=== PATIENT | female | born 1950 | race Caucasian/White ===

== ENCOUNTER 2020-06-03 12:51 | Emergency (ER) | payer MEDICARE, OTHER ==
[2020-06-03] MEDS ORDERED: Sodium Chloride 0.9% 10 ML Syringe FLUSH PRN (13:06)
--- NOTE | 2020-06-03 14:08 | EDM.PDOC ---
ED HPI GENERAL MEDICAL PROBLEM - General Chief Complaint: General Stated Complaint: [facility] Time Seen by Provider: 06/03/20 12:56 Source of Information: Reports: Patient, EMS History Limitations: Reports: No Limitations - History of Present Illness INITIAL COMMENTS - FREE TEXT/NARRATIVE: The patient presents by [facility] for a fall. She said this morning she fell while going to the bathroom. She tripped on a carpet. She may have hit her head on the wall on the way down. This happened at 4am. Her son called 911 to help get her up and then to take her to the hospital. She says she is a fall risk. She uses a walker at home. She is obese and has diabetic neuropathy. She has right shoulder and right low back pain. She has no fever, chills, cough, chest pain, shortness of breath, abdominal pain, nausea or vomiting. She did mention she has some vaginal discharge but on further questioning it sounds as if she has urinary incontinence. She has no numbness or weakness. She has a history of hypercholesterolemia, hypertension, asthma, PE for which she is on xarelto. She also has type II diabetes and diabetic neuropathy. Onset: Sudden Duration: Hour(s): Location: Reports: Head, Back, Upper Extremity, Right (shoulder) Quality: Reports: Sharp Severity: Moderate Improves with: Reports: Immobilization Worsens with: Reports: Movement Context: Reports: Trauma (fell) Associated Symptoms: Reports: Headaches. Denies: Confusion, Chest Pain, Cough, Diaphoresis, Fever/Chills, Nausea/Vomiting, Shortness of Breath Right Shoulder Pain Score (Numeric/FACES): 6 - Related Data Allergies Allergy/AdvReac Type Severity Reaction Status Date / Time metformin Allergy Itching Verified 06/03/20 13:05 Home Meds: Home Meds Albuterol Sulfate [Albuterol Sulfate Hfa] 2 puff IH Q6H PRN 06/03/20 [History] Aspirin [Halfprin] 81 mg PO DAILY 06/03/20 [History] Beclomethasone Dipropionate [Qvar Redihaler] 1 puff IH BID 06/03/20 [History] Escitalopram [Lexapro] 10 mg PO DAILY 06/03/20 [History] Gabapentin [Neurontin] 100 mg PO TID 06/03/20 [History] Metoprolol Succinate 25 mg PO DAILY 06/03/20 [History] Rivaroxaban [Xarelto] 20 mg PO DAILY 06/03/20 [History] Rosuvastatin Calcium 20 mg PO BEDTIME 06/03/20 [History] traMADol [Ultram] 50 mg PO BID 06/03/20 [History] Past Medical History Cardiovascular History: Reports: High Cholesterol, Hypertension Respiratory History: Reports: Asthma, PE [employer] History: Reports: Neurological History: Reports: Neuropathy, Diabetic Endocrine/Metabolic History: Reports: Diabetes, Type II - Past Surgical History Musculoskeletal Surgical History: Reports: Knee Replacement, Other (See Below) Other Musculoskeletal Surgeries/Procedures:: bilat Social & Family History - Tobacco Use Tobacco Use Status *Q: Former Tobacco User Used Tobacco, but Quit: Yes Month/Year Tobacco Last Used: 1981 - Caffeine Use Caffeine Use: Reports: Soda - Recreational Drug Use Recreational Drug Use: No ED ROS GENERAL - Review of Systems Review Of Systems: See Below Constitutional: Reports: No Symptoms HEENT: Reports: No Symptoms Respiratory: Reports: No Symptoms Cardiovascular: Reports: No Symptoms Endocrine: Reports: No Symptoms GI/Abdominal: Reports: No Symptoms : Reports: No Symptoms Musculoskeletal: Reports: Shoulder Pain (right), Back Pain Neurological: Reports: Headache ED EXAM, GENERAL - Physical Exam Exam: See Below Exam Limited By: No Limitations General Appearance: Alert, No Apparent Distress Ears: Normal External Exam Nose: Normal Inspection Head: Atraumatic, Normocephalic Neck: Normal Inspection, Supple, Non-Tender Respiratory/Chest: No Respiratory Distress, Lungs Clear, Normal Breath Sounds Cardiovascular: Regular Rate, Rhythm, No Edema, No Murmur GI/Abdominal: Soft, Non-Tender, No Organomegaly, No Mass Back Exam: Other (Pain upon palpation to the low back) Extremities: Other (Pain upon palpation to the right shoulder. Good sensation and pulses distally.) Neurological: Alert, Oriented, No Motor/Sensory Deficits #1 Interpretation EKG Date: 06/03/20 Time: 13:22 Rhythm: NSR Rate (Beats/Min): 83 [place]: LAD-Left [place]uchy Deviation P-Wave: Present QRS: Normal ST-T: Normal QT: Normal Course - Vital Signs Last Recorded V/S: Last Vital Signs Temp 98.6 F 06/03/20 12:59 Pulse 87 06/03/20 12:59 Resp 20 06/03/20 12:59 BP 149/60 H 06/03/20 12:59 Pulse Ox 96 06/03/20 12:59 - Orders/Labs/Meds Orders: Active Orders 24 hr Category Date Time Status EKG Documentation Completion [RC] STAT Care 06/03/20 13:11 Active Peripheral IV Care [RC] . DIRECTED Care 06/03/20 13:12 Active Sodium Chloride 0.9% [Saline Flush] Med 06/03/20 13:06 Active 10 ml FLUSH ASDIRECTED PRN Peripheral IV Insertion Adult [OM.PC] Stat Oth 06/03/20 13:10 Ordered Medication Orders Sodium Chloride (Saline Flush) 10 ml FLUSH ASDIRECTED PRN PRN Reason: Keep Vein Open Last Admin: 06/03/20 14:26 Dose: 10 ml Documented by: KEYA Labs: Laboratory Tests 06/03/20 06/03/20 06/03/20 Range/Units 13:33 13:33 13:33 WBC 5.38 (3.98-10.04) K/mm3 RBC 4.23 (3.98-5.22) M/mm3 Hgb 10.8 L (11.2-15.7) gm/dl Hct 36.1 (34.1-44.9) % MCV 85.3 (79.4-94.8) fl MCH 25.5 L (25.6-32.2) pg MCHC 29.9 L (32.2-35.5) g/dl RDW Std Deviation 46.8 H (36.4-46.3) fL Plt Count 241 (182-369) K/mm3 MPV 9.9 (9.4-12.3) fl Neut % (Auto) 64.8 (34.0-71.1) % Lymph % (Auto) 27.0 (19.3-51.7) % [place] % (Auto) 5.0 (4.7-12.5) % Eos % (Auto) 2.6 (0.7-5.8) Baso % (Auto) 0.4 (0.1-1.2) % Neut # (Auto) 3.49 (1.56-6.13) K/mm3 Lymph # (Auto) 1.45 (1.18-3.74) K/mm3 [place] # (Auto) 0.27 (0.24-0.36) K/mm3 Eos # (Auto) 0.14 (0.04-0.36) K/mm3 Baso # (Auto) 0.02 (0.01-0.08) K/mm3 Manual Slide Review Abnormal smear Sodium 145 (136-145) mEq/L Potassium 3.6 (3.5-5.1) mEq/L Chloride 105 (98-107) mEq/L Carbon Dioxide 29 (21-32) mEq/L Anion Gap 14.6 (5-15) BUN 14 (7-18) mg/dL Creatinine 1.1 H (0.55-1.02) mg/dL Est Cr Clr Drug Dosing 46.63 mL/min Estimated GFR (MDRD) 49 (>60) mL/min BUN/Creatinine Ratio 12.7 L (14-18) Glucose 221 H (83-115) mg/dL Calcium 9.2 (8.5-10.1) mg/dL Total Bilirubin 0.4 (0.2-1.0) mg/dL AST 18 (15-37) U/L ALT 29 (14-59) U/L Alkaline Phosphatase 162 H (46-116) U/L Troponin I < 0.017 (0.00-0.056) ng/mL C-Reactive Protein 1.2 H* (<1.0) mg/dL NT-Pro-B Natriuret Pep 188 H (0-125) pg/mL Total Protein 7.4 (6.4-8.2) g/dl Albumin 3.0 L (3.4-5.0) g/dl Globulin 4.4 gm/dL Albumin/Globulin Ratio 0.7 L (1-2) Urine Color (Yellow) Urine Appearance (Clear) Urine pH (5.0-8.0) Ur Specific [place] (1.005-1.030) Urine Protein (Negative) Urine Glucose (UA) (Negative) Urine Ketones (Negative) Urine Occult Blood (Negative) Urine Nitrite (Negative) Urine Bilirubin (Negative) Urine Urobilinogen (0.2-1.0) Ur Leukocyte Esterase (Negative) Urine RBC (0-5) /hpf Urine WBC (0-5) /hpf Ur Squamous Epith Cells (0-5) /hpf Urine Bacteria (FEW) /hpf Urine Mucus (FEW) /hpf 06/03/20 Range/Units 15:55 WBC (3.98-10.04) K/mm3 RBC (3.98-5.22) M/mm3 Hgb (11.2-15.7) gm/dl Hct (34.1-44.9) % MCV (79.4-94.8) fl MCH (25.6-32.2) pg MCHC (32.2-35.5) g/dl RDW Std Deviation (36.4-46.3) fL Plt Count (182-369) K/mm3 MPV (9.4-12.3) fl Neut % (Auto) (34.0-71.1) % Lymph % (Auto) (19.3-51.7) % Gulf % (Auto) (4.7-12.5) % Eos % (Auto) (0.7-5.8) Baso % (Auto) (0.1-1.2) % Neut # (Auto) (1.56-6.13) K/mm3 Lymph # (Auto) (1.18-3.74) K/mm3 [place] # (Auto) (0.24-0.36) K/mm3 Eos # (Auto) (0.04-0.36) K/mm3 Baso # (Auto) (0.01-0.08) K/mm3 Manual Slide Review Sodium (136-145) mEq/L Potassium (3.5-5.1) mEq/L Chloride (98-107) mEq/L Carbon Dioxide (21-32) mEq/L Anion Gap (5-15) BUN (7-18) mg/dL Creatinine (0.55-1.02) mg/dL Est Cr Clr Drug Dosing mL/min Estimated GFR (MDRD) (>60) mL/min BUN/Creatinine Ratio (14-18) Glucose (83-115) mg/dL Calcium (8.5-10.1) mg/dL Total Bilirubin (0.2-1.0) mg/dL AST (15-37) U/L ALT (14-59) U/L Alkaline Phosphatase (46-116) U/L Troponin I (0.00-0.056) ng/mL C-Reactive Protein (<1.0) mg/dL NT-Pro-B Natriuret Pep (0-125) pg/mL Total Protein (6.4-8.2) g/dl Albumin (3.4-5.0) g/dl Globulin gm/dL Albumin/Globulin Ratio (1-2) Urine Color Yellow (Yellow) Urine Appearance Clear (Clear) Urine pH 7.0 (5.0-8.0) Ur Specific [place] 1.020 (1.005-1.030) Urine Protein Negative (Negative) Urine Glucose (UA) Negative (Negative) Urine Ketones Negative (Negative) Urine Occult Blood Negative (Negative) Urine Nitrite Negative (Negative) Urine Bilirubin Negative (Negative) Urine Urobilinogen 0.2 (0.2-1.0) Ur Leukocyte Esterase 1+ H (Negative) Urine RBC 0-5 (0-5) /hpf Urine WBC 0-5 (0-5) /hpf Ur Squamous Epith Cells 0-5 (0-5) /hpf Urine Bacteria Few (FEW) /hpf Urine Mucus Not seen (FEW) /hpf Meds: Medications Generic Name Dose Route Start Last Admin Trade Name Freq PRN Reason Stop Dose Admin Sodium Chloride 10 ml 06/03/20 13:06 06/03/20 14:26 Saline Flush FLUSH 10 ml ASDIRECTED PRN Administration Keep Vein Open - Re-Assessments/Exams Free Text/Narrative Re-Assessment/Exam: 06/03/20 14:11 I ordered an IV saline lock, EKG, CT of his head, labs and UA. Her EKG shows a NSR with no acute changes. 06/03/20 15:[address] of her head shows senescent change as described above. Nothing acute is appreciated. No evidence of intracranial hemorrhage. Her CXR shows shows findings believed to be incidental. Nothing acute is appreciated. X-ray of her shoulder shows findings as noted above and nothing acute is appreciated. The x-ray of her lumbar spine shows compression deformity of L1 which is most likely old. MRI would be needed to confirm age if patient has symptoms. Her CBC looks good. Her creatinine is slightly elevated at 1.1. Her glucose is elevated at 221. Her troponin is negative. Her CRP is elevated at 1.2. My nurse got her up and she did good. I am waiting for the UA. 06/03/20 16:28 The UA shows a UTI. 06/03/20 17:09 Her son called and he had concerns that he cannot care for her at home. He asked if she could be admitted here for a couple of days. I do not have a reason to admit. The L1 fracture is chronic and she has no pain now. She got up and could walk with a walker here. I did give the number of our social services designee to call on Friday to get some help and guidance. Departure - Departure Time of Disposition: 17:15 Disposition: Home, Self-Care 01 Condition: Good Clinical Impression: Generalized weakness Fall Qualifiers: Encounter type: initial encounter Qualified Code(s): W19.XXXA - Unspecified fall, initial encounter Compression fracture of L1 lumbar vertebra Qualifiers: Encounter type: initial encounter Qualified Code(s): S32.010A - Wedge compression fracture of first lumbar vertebra, initial encounter for closed fracture - Discharge Information Referrals: PCP,Not In Area [Primary Care Provider] - Fior Li, EXECUTIVE COORDINATOR [Nurse Practitioner] - 1 Week Forms: ED Department Discharge, ED Return to Work/School Form Additional Instructions: Follow up with Fior Li in our clinic or another provider in our clinic. Take your medication as prescribed. Please return if you are worse. Sepsis Event Note (ED) - Evaluation Sepsis Screening Result: No Definite Risk - Focused Exam Vital Signs: Vital Signs Temp Pulse Resp BP Pulse Ox 06/03/20 12:59 98.6 F 87 20 149/60 H 96
--- NOTE | 2020-06-03 14:13 | CT ---
Head CT Technique: Multiple axial sections through the brain were obtained. Intravenous contrast was not utilized. Reconstructed coronal and sagittal images were obtained. Findings: Ventricles along with basal cisterns and sulci over the convexities are mildly prominent. Atherosclerotic change is seen within the carotid siphon. Diminished density is noted within the periventricular white matter which is compatible with small vessel ischemic demyelination change. No evidence of intracranial hemorrhage. No midline shift or mass-effect is seen. Visualized mastoid sinuses and paranasal sinuses show nothing acute. No acute calvarial finding is seen. Impression: 1. Senescent change as described above. 2. Nothing acute is appreciated. No evidence of intracranial hemorrhage. Diagnostic code #2
--- NOTE | 2020-06-03 14:51 | CR ---
Chest: Frontal view of the chest was obtained. Comparison: No previous chest CT is available. Heart size is normal. Tortuous thoracic aorta is seen. Lungs show focal pleural density within the lateral right chest correlating to previous rib fractures. Right shoulder prosthesis is seen. Impression: 1. Findings believed to be incidental. 2. Nothing acute is appreciated. Diagnostic code #2
--- NOTE | 2020-06-03 14:52 | CR ---
Lumbar spine: AP and lateral views of the lumbar spine were obtained. Cone-down lateral views were also obtained at the lumbosacral junction. Comparison: No prior lumbar spine imaging is available. Trans-pedicle screws are seen within L4, L5 and S1. There is a moderately severe compression deformity of L1 which is most likely old. Slight disc space narrowing is seen posteriorly at L2-3 and L3-4 as well as at T12-L1 and L1-2. Minimal scoliosis is noted. No definite acute abnormality is appreciated. Impression: 1. Compression deformity of L1 which is most likely old. MRI would be needed to confirm age if patient has symptoms to this area. 2. Mild degenerative change and previous lumbar spine surgery. Diagnostic code #3
--- NOTE | 2020-06-03 14:52 | CR ---
Right shoulder: 3 views of the right shoulder were obtained. Comparison: No prior shoulder study is available. Right shoulder prosthesis is noted. Previous rib fractures and pleural thickening are partially seen within the chest. Vascular calcification is noted within the right carotid artery. No definite acute fracture, dislocation or other bony abnormality is appreciated. Impression: 1. Findings as noted above. 2. Nothing acute is appreciated. Diagnostic code #2
== END 2020-06-03 17:25 | disposition home or self-care (01) ==
LOC: JD.ED 12:51
DX: S32.019A Unspecified fracture of first lumbar vertebra, initial encounter for closed fracture (principal); R53.1 Weakness; E78.00 Pure hypercholesterolemia, unspecified; I10 Essential (primary) hypertension; J45.909 Unspecified asthma, uncomplicated; E11.40 Type 2 diabetes mellitus with diabetic neuropathy, unspecified; Z79.82 Long term (current) use of aspirin; Z79.01 Long term (current) use of anticoagulants; Z79.899 Other long term (current) drug therapy; Z86.711 Personal history of pulmonary embolism; Z88.8 Allergy status to other drugs, medicaments and biological substances; Z87.891 Personal history of nicotine dependence; W01.0XXA Fall on same level from slipping, tripping and stumbling without subsequent striking against object, initial encounter
CPT/HCPCS: 36415; 70450; 70450-26; 71045; 71045-26; 72100; 72100-26; 73030-26-RT; 73030-RT; 80053; 81001; 83880; 84484; 85025; 86140; 93005; 93010; 99284; 99285-25

== ENCOUNTER 2020-06-10 10:36 | Emergency (ER) | payer MEDICARE, OTHER ==
--- NOTE | 2020-06-10 11:50 | EDM.PDOC ---
ED HPI GENERAL MEDICAL PROBLEM - General Chief Complaint: Abdominal Pain Stated Complaint: [facility] Time Seen by Provider: 06/10/20 11:36 Source of Information: Reports: Patient, Old Records, RN Notes Reviewed History Limitations: Reports: No Limitations - History of Present Illness INITIAL COMMENTS - FREE TEXT/NARRATIVE: Patient is a 70-year-old female who presents to the ED via [facility] for the evaluation of her abdominal pain and vaginal complaint. Patient notes for the past 4 5 days she has been having issues with generalized abdominal pain that seems to come and go. She notes it seems to worsen with spicy foods. It is better when she does not eat spicy foods. She has had some diarrhea associated with this, last episode was yesterday. Patient notes she is also been incontinent for the last 6 or 8 months, and has been wearing diapers for this. For the past 3 days however she is having some burning sensation in her vaginal area and thinks that she might have a rash causing issues. She has not had any weakness, fatigue, and can get around her house normally with her walker. Patient does live with her [id number] and son, and notes that they do help her somewhat with her health. She notes today when the triage nurse did a catheterized urine, when she wiped with the cold rag or soap that the area burned. She has not been using any sort of barrier creams for this. She has not had any fevers or chills, cough or shortness of breath, or any other sick- like symptoms. Abdominal Pain Score (Numeric/FACES): 6 Vaginal Pain Score (Numeric/FACES): 8 - Related Data Allergies Allergy/AdvReac Type Severity Reaction Status Date / Time metformin Allergy Itching Verified 06/10/20 11:02 Home Meds: Home Meds Albuterol Sulfate [Albuterol Sulfate Hfa] 2 puff IH Q6H PRN 06/03/20 [History] Aspirin [Halfprin] 81 mg PO DAILY 06/03/20 [History] Beclomethasone Dipropionate [Qvar Redihaler] 1 puff IH BID 06/03/20 [History] Escitalopram [Lexapro] 10 mg PO DAILY 06/03/20 [History] Gabapentin [Neurontin] 100 mg PO TID 06/03/20 [History] Metoprolol Succinate 25 mg PO DAILY 06/03/20 [History] Rivaroxaban [Xarelto] 20 mg PO DAILY 06/03/20 [History] Rosuvastatin Calcium 20 mg PO BEDTIME 06/03/20 [History] traMADol [Ultram] 50 mg PO BID 06/03/20 [History] Menthol/Zinc Oxide [Calmoseptine] 113 gm TOP BID #1 tube 06/10/20 [Rx] Past Medical History Cardiovascular History: Reports: High Cholesterol, Hypertension Respiratory History: Reports: Asthma, [employer] History: Reports: Neurological History: Reports: Neuropathy, Diabetic Endocrine/Metabolic History: Reports: Diabetes, Type II - Past Surgical History Musculoskeletal Surgical History: Reports: Knee Replacement, Other (See Below) Other Musculoskeletal Surgeries/Procedures:: bilat Social & Family History - Caffeine Use Caffeine Use: Reports: Soda ED ROS GENERAL - Review of Systems Review Of Systems: Comprehensive ROS is negative, except as noted in HPI. ED EXAM, GI/ABD - Physical Exam Exam: See Below Exam Limited By: No Limitations General Appearance: Alert, WD/WN, No Apparent Distress Respiratory/Chest: No Respiratory Distress, Lungs Clear, Normal Breath Sounds, No Accessory Muscle Use, Chest Non-Tender Cardiovascular: Normal Peripheral Pulses, Regular Rate, Rhythm, No Edema GI/Abdominal Exam: Normal Bowel Sounds, Soft, Non-Tender, No Distention, No Mass (Female) Exam: Normal External Exam, Vaginal Discharge (clear discharge coming from urethra or vagina. Pt is obese, and is hard to assess. No discernable rash on inner or outer labia.) Neurological: Alert, Oriented, Normal Cognition, No Motor/Sensory Deficits Psychiatric: Normal Affect, Normal Mood Skin Exam: Warm, Dry, Intact, Normal Color, No Rash Course - Vital Signs Last Recorded V/S: Last Vital Signs Temp 98.6 F 06/10/20 10:57 Pulse 86 06/10/20 10:57 Resp 18 06/10/20 10:57 BP 127/58 L 06/10/20 10:57 Pulse Ox 95 06/10/20 10:57 - Orders/Labs/Meds Orders: Active Orders 24 hr Category Date Time Status Menthol/Zinc Oxide [Calmoseptine] Med 06/10/20 13:06 Active 1 gm TOP BID Medication Orders Calamine/Phenol (Calmoseptine) 1 gm TOP BID THOMAS Labs: Laboratory Tests 06/10/20 06/10/20 06/10/20 Range/Units 11:03 11:45 11:45 WBC 5.59 (3.98-10.04) K/mm3 RBC 4.11 (3.98-5.22) M/mm3 Hgb 10.5 L (11.2-15.7) gm/dl Hct 35.2 (34.1-44.9) % MCV 85.6 (79.4-94.8) fl MCH 25.5 L (25.6-32.2) pg MCHC 29.8 L (32.2-35.5) g/dl RDW Std Deviation 46.6 H (36.4-46.3) fL Plt Count 186 (182-369) K/mm3 MPV 9.9 (9.4-12.3) fl Neut % (Auto) 65.7 (34.0-71.1) % Lymph % (Auto) 24.2 (19.3-51.7) % [place] % (Auto) 8.1 (4.7-12.5) % Eos % (Auto) 1.4 (0.7-5.8) Baso % (Auto) 0.4 (0.1-1.2) % Neut # (Auto) 3.68 (1.56-6.13) K/mm3 Lymph # (Auto) 1.35 (1.18-3.74) K/mm3 [place] # (Auto) 0.45 H (0.24-0.36) K/mm3 Eos # (Auto) 0.08 (0.04-0.36) K/mm3 Baso # (Auto) 0.02 (0.01-0.08) K/mm3 Manual Slide Review Abnormal smear Sodium 141 (136-145) mEq/L Potassium 3.6 (3.5-5.1) mEq/L Chloride 105 (98-107) mEq/L Carbon Dioxide 30 (21-32) mEq/L Anion Gap 9.6 (5-15) BUN 10 (7-18) mg/dL Creatinine 1.1 H (0.55-1.02) mg/dL Est Cr Clr Drug Dosing 46.63 mL/min Estimated GFR (MDRD) 49 (>60) mL/min BUN/Creatinine Ratio 9.1 L (14-18) Glucose 217 H (83-115) mg/dL Calcium 8.9 (8.5-10.1) mg/dL Total Bilirubin 0.4 (0.2-1.0) mg/dL AST 11 L (15-37) U/L ALT 18 (14-59) U/L Alkaline Phosphatase 131 H (46-116) U/L Total Protein 7.2 (6.4-8.2) g/dl Albumin 3.0 L (3.4-5.0) g/dl Globulin 4.2 gm/dL Albumin/Globulin Ratio 0.7 L (1-2) Urine Color Yellow (Yellow) Urine Appearance Clear (Clear) Urine pH 6.5 (5.0-8.0) Ur Specific Diamond 1.020 (1.005-1.030) Urine Protein 1+ H (Negative) Urine Glucose (UA) Trace H (Negative) Urine Ketones Negative (Negative) Urine Occult Blood Negative (Negative) Urine Nitrite Negative (Negative) Urine Bilirubin Negative (Negative) Urine Urobilinogen 0.2 (0.2-1.0) Ur Leukocyte Esterase Negative (Negative) Urine RBC 0-5 (0-5) /hpf Urine WBC 0-5 (0-5) /hpf Ur Epithelial Cells 0-5 (0-5) /hpf Urine Bacteria Rare (FEW) /hpf Urine Mucus Moderate H (FEW) /hpf Meds: Medications Generic Name Dose Route Start Last Admin Trade Name Freq PRN Reason Stop Dose Admin Calamine/Phenol 1 gm 06/10/20 13:06 Calmoseptine TOP BID THOMAS - Re-Assessments/Exams Free Text/Narrative Re-Assessment/Exam: 06/10/20 11:49 Patient presents to the ED for her abdomen pain and vaginal burning. There is no discernible rash on her vagina, and the catheterized urine does appear to be without infection for the most part at this time however microscopy is still pending. Labs have been obtained by triage nurse due to extended wait times in the ER. Patient notes she is a diabetic, we will await the metabolic panel, and decide on imaging after this. I am somewhat concerned this might be a vulnerable adult type situation. RN that was here when she visited us 1 week ago stated that the family was very hesitant to take her back, and a different RN today noted some erythema/irritation to her buttocks that is suggestive of not being changed often enough; or she is not receiving the help she needs to adequately take care of herself. 06/10/20 12:30 Patient's labs have resulted, glucose is mildly elevated 217; otherwise labs are unremarkable. Patient's pain is not severe enough to warrant CT at this time however we will do abdomen x-ray for further evaluation. 06/10/20 13:04 The patient's abdomen x-ray has been taken, there does appear to be lots of gas within the abdomen, there is some stool in the right side of her colon however I meant to order 2 view abdomen with a lateral decubitus, to check for air-fluid levels. Have ordered lateral decubitus view at this time. Patient will likely be sent home with general conservative recommendations and family will need to try to get her in assisted living or senior care if they do not believe they can provide the social support she needs with her ADLs. 06/10/20 13:21 The patient's flat abdomen films demonstrate scattered small bowel gas and colonic gas however no obstructive pattern is noted at this time. We will still go forward with the lateral decubitus for complete series. 06/10/20 13:58 Lateral decubitus films do demonstrate quite a bit of gas within the colon, but again no air-fluid levels are be suggestive of obstruction by myself and Dr. Moore. Official radiology read is pending. We will discharge patient home with general recommendations. 06/10/20 14:57 Official radiology read of the lateral decubitus view demonstrates no free air within the abdomen, and no definite signs of obstruction were appreciated. Departure - Departure Time of Disposition: 13:22 Disposition: Home, Self-Care 01 Condition: Good Clinical Impression: Perineal irritation in female, Urinary incontinence in female - Discharge Information *PRESCRIPTION DRUG MONITORING PROGRAM REVIEWED*: No *COPY OF PRESCRIPTION DRUG MONITORING REPORT IN PATIENT EMIL: No Prescriptions: Menthol/Zinc Oxide [Calmoseptine] 113 gm TOP BID #1 tube Instructions: Urinary Incontinence Referrals: PCP,Not In Area [Primary Care Provider] - Forms: ED Department Discharge Additional Instructions: You were seen in the ER today for your abdomen pain, and vaginal burning. Labs done at today's visit are unremarkable, your x-rays taken at today's visit show quite a bit of gas throughout the colon but no signs of obstruction or constipation. The abdomen pain you are feeling, likely is due to gas. You may try some Gas-X at home to see if this helps relieve some of the gas pressure/pain. Urinalysis demonstrated no acute sign of infection, the vaginal burning you are feeling is likely due to irritation from your urinary incontinence, if you do not change your brief enough, you can get skin irritation in your vaginal/buttocks area, that can cause burning. You have been provided with a tube of medication called calmoseptine, this is a topical ointment, that has some menthol or numbing medication in it, you may use this to your vaginal area and buttocks area up to 4 times a day as needed, but I would highly recommend you use it at least 2 times a day. You should have your urinary brief change more often throughout the day, and it should definitely be changed if you soil yourself. If you cannot provide these cares for yourself, or if family members cannot help you with this, I strongly recommend that you think about getting yourself into assisted living, or a higher level of care. Please continue all other medications as previously prescribed. If you do not have a primary care provider already, I recommend that you follow-up with a provider in our clinic, any family practice provider would be able to provide you with the services. Our clinic telephone number [phone], please call in the morning to obtain an appointment with the provider, for follow-up of your symptoms that prompted your ER visit today. Please return to the ER at any time if your symptoms change or worsen. Sepsis Event Note (ED) - Evaluation Sepsis Screening Result: No Definite Risk - Focused Exam Vital Signs: Vital Signs Temp Pulse Resp BP Pulse Ox 06/10/20 10:57 98.6 F 86 18 127/58 L 95 - My Orders Last 24 Hours: My Active Orders 06/10/20 13:06 Menthol/Zinc Oxide [Calmoseptine] 1 gm TOP BID - Assessment/Plan Last 24 Hours: My Active Orders 06/10/20 13:06 Menthol/Zinc Oxide [Calmoseptine] 1 gm TOP BID
[2020-06-10] MEDS ORDERED: Menthol/Zinc Oxide Ointment 3.5 GM Tube TOP SCH (13:06)
--- NOTE | 2020-06-10 13:20 | CR ---
Abdomen: Supine view of the abdomen was obtained. Comparison: No prior abdominal x-rays available. Scattered small bowel gas and colonic gas is seen. This does not appear to represent obstruction at this time. Previous lumbar spine surgery is noted. Mild degenerative change is seen within other portions of the spine. No abnormal calcifications or soft tissue abnormality is appreciated. Impression: 1. Nothing acute is appreciated on supine abdominal study as described above. Diagnostic code #2
--- NOTE | 2020-06-10 14:33 | CR ---
Abdomen: Cross-table lateral view of the abdomen was obtained. Comparison: Previous abdominal supine study performed earlier on the same day (12:39 PM). Findings: Scattered small bowel and colonic gas is noted. No definite findings of obstruction are appreciated. No free air is seen. Prior lumbar spine surgery is noted. Impression: 1. No free air is seen within the abdomen. 2. Other findings believed to be incidental as noted above. Diagnostic code #2
== END 2020-06-10 15:00 | disposition home or self-care (01) ==
LOC: JD.ED 10:36
DX: R32 Unspecified urinary incontinence (principal); L98.8 Other specified disorders of the skin and subcutaneous tissue; E78.00 Pure hypercholesterolemia, unspecified; I10 Essential (primary) hypertension; J45.909 Unspecified asthma, uncomplicated; E11.40 Type 2 diabetes mellitus with diabetic neuropathy, unspecified; Z79.01 Long term (current) use of anticoagulants; Z79.82 Long term (current) use of aspirin; Z79.899 Other long term (current) drug therapy; Z88.8 Allergy status to other drugs, medicaments and biological substances; Z86.711 Personal history of pulmonary embolism
CPT/HCPCS: 36415; 74018; 74018-26; 80053; 81001; 85025; 99283; 99284-25

== ENCOUNTER 2020-06-14 10:17 | Emergency (ER) | payer MEDICAID, MEDICARE ==
[2020-06-14] MEDS ORDERED: Sodium Chloride 0.9% 10 ML Syringe FLUSH PRN (10:41)
--- NOTE | 2020-06-14 11:00 | EDM.PDOC ---
ED HPI GENERAL MEDICAL PROBLEM - General Chief Complaint: Upper Extremity Injury/Pain Stated Complaint: [facility] Time Seen by Provider: 06/14/20 10:35 Source of Information: Reports: Patient, EMS, Old Records, RN History Limitations: Reports: No Limitations - History of Present Illness INITIAL COMMENTS - FREE TEXT/NARRATIVE: 70-year-old female presents to the emergency department by [facility] with complaints of falling out of bed this morning and not being able to get up. Patient states that the dog jumped on the bed and almost pushed her out of bed she landed on her right side and did not hit her head or anything else but was unable to get up by herself. She does not know how long she laid on the floor before she was found. She complained of some right shoulder discomfort but this is eased up since presentation to the emergency department. She however states that she has not taken any of her medications in over 2 weeks as the home health nurse told her not to until she was seen by her regular physician. Of note she is dependent diabetic for which she takes Lantus 30 units at nighttime and Humalog sliding scale before each meal. 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 Patient normally uses a walker and is ambulatory around her home per her report. Adult Protective Services has been involved in this patient's case as well as criminal justice social worker. The hospital social work specialist has been notified that this patient is in the emergency department at this time. Right Shoulder Pain Score (Numeric/FACES): 5 - Related Data Allergies Allergy/AdvReac Type Severity Reaction Status Date / Time metformin Allergy Itching Verified 06/14/20 10:31 Home Meds: Home Meds Albuterol Sulfate [Albuterol Sulfate Hfa] 2 puff IH Q6H PRN 06/03/20 [History] Aspirin [Halfprin] 81 mg PO DAILY 06/03/20 [History] Beclomethasone Dipropionate [Qvar Redihaler] 1 puff IH BID 06/03/20 [History] Escitalopram [Lexapro] 10 mg PO DAILY 06/03/20 [History] Gabapentin [Neurontin] 100 mg PO TID 06/03/20 [History] Metoprolol Succinate 25 mg PO DAILY 06/03/20 [History] Rivaroxaban [Xarelto] 20 mg PO DAILY 06/03/20 [History] Rosuvastatin Calcium 20 mg PO BEDTIME 06/03/20 [History] traMADol [Ultram] 50 mg PO BID 06/03/20 [History] Menthol/Zinc Oxide [Calmoseptine] 113 gm TOP BID #1 tube 06/10/20 [Rx] Magnesium Chloride [Slow-Mag] 71.5 mg PO DAILY #20 tablet. 06/14/20 [Rx] Past Medical History HEENT History: Reports: Impaired Vision Other HEENT History: wears eyeglasses. Upper dentures, no teeth on bottom. Cardiovascular History: Reports: High Cholesterol, Hypertension Respiratory History: Reports: Asthma, PE [employer] History: Reports: Neurological History: Reports: Neuropathy, Diabetic Endocrine/Metabolic History: Reports: Diabetes, Type II - Past Surgical History Musculoskeletal Surgical History: Reports: Knee Replacement, Shoulder Surgery Social & Family History - Tobacco Use Tobacco Use Status *Q: Never Tobacco User Second Hand Smoke Exposure: Yes - Caffeine Use Caffeine Use: Reports: Coffee, Soda - Recreational Drug Use Recreational Drug Use: No Review of Systems - Review of Systems Review Of Systems: See Below Constitutional: Reports: No Symptoms. Denies: Chills, Fever Eyes: Reports: No Symptoms Ears: Reports: No Symptoms Nose: Reports: No Symptoms Mouth/Throat: Reports: No Symptoms Respiratory: Reports: Wheezing (audible exp wheexe noted). Denies: Shortness of Breath, Cough, Sputum Cardiovascular: Reports: Edema. Denies: Chest Pain, Lightheadedness, Palpitations, Syncope GI/Abdominal: Reports: No Symptoms. Denies: Abdominal Pain, Constipation, Decreased Appetite, Diarrhea, Nausea, Vomiting Genitourinary: Reports: Incontinence. Denies: Dysuria, Painful Urination Musculoskeletal: Reports: Shoulder Pain Skin: Reports: No Symptoms Neurological: Reports: No Symptoms Psychiatric: Reports: No Symptoms ED EXAM, GENERAL - Physical Exam Exam: See Below Exam Limited By: No Limitations General Appearance: Alert, WD/WN, No Apparent Distress, Obese Eye Exam: Bilateral Eye: PERRL Ears: Normal External Exam, Hearing Grossly Normal Nose: Normal Inspection Throat/Mouth: Normal Inspection, Normal Voice, No Airway Compromise Head: Atraumatic, Normocephalic Neck: Normal Inspection, Supple, Non-Tender, Full Range of Motion Respiratory/Chest: No Respiratory Distress, Lungs Clear, No Accessory Muscle Use, Chest Non-Tender, Decreased Breath Sounds (due to body habitus), Wheezing (fine audible exp wheeze noted) Cardiovascular: Regular Rate, Rhythm, No Murmur. No: No Edema (2+ pitting to bilateral lower extremity) Peripheral Pulses: 1+: Dorsalis Pedis (L), Dorsalis Pedis (R), 2+: Radial (L), Radial (R) GI/Abdominal: Normal Bowel Sounds, Soft, Non-Tender, No Distention (Female) Exam: Deferred Rectal (Female) Exam: Deferred Back Exam: Normal Inspection, Full Range of Motion Extremities: Normal Inspection, Normal Range of Motion, Non-Tender, No Pedal Edema, Normal Capillary Refill, Other (denies pain to her right shoulder and has full range of motion) Neurological: Alert, Oriented, Normal Cognition Psychiatric: Normal Affect, Normal Mood Skin Exam: Warm, Dry, Normal Color, Other (erythema noted to coccyx-no open areas noted). No: No Rash (mild intertrigo under bilateral breasts) Lymphatic: No Adenopathy #1 Interpretation EKG Date: 06/14/20 Time: 11:12 Rhythm: NSR Rate (Beats/Min): 75 [place]: Normal P-Wave: Present EKG Interpretation Comments: Per Dr David interpretation: sinus rhythm @ 75/min, initial poor R wave progression, decreased voltage precordial leads, LAD (-32 degrees) with mild intraventricular conduction delay, T wave flattening II, III, AVF, AVL, V1-V6, consider electrolyte/magnesium imbalance Course - Vital Signs Text/Narrative:: I have ordered for saline lock to be placed on this patient, C-reactive protein, CBC, CMP, CPK, serum ketones, lactic acid, magnesium, serum osmole, proBNP, and a UA with micro if indicated, 1 view of the chest, and an EKG. Patient was found laying on the floor by EMS for an unknown amount of time and patient has not taken her medications x2 weeks. Last Recorded V/S: Last Vital Signs Temp 97.4 F 06/14/20 10:17 Pulse 82 06/14/20 14:47 Resp 16 06/14/20 14:47 BP 187/126 H 06/14/20 14:47 Pulse Ox 94 L 06/14/20 14:47 - Orders/Labs/Meds Orders: Active Orders 24 hr Category Date Time Status EKG Documentation Completion [RC] STAT Care 06/14/20 10:41 Active Insert Carey Catheter [Insert Urinary Catheter] [OM.PC] Care 06/14/20 11:15 Ordered Stat Urinary Catheter Assessment [RC] ASDIRECTED Care 06/14/20 11:15 Active A1C [GLYCOSYLATED HEMOGLOBIN,HGBA1C] [CHEM] Stat Lab 06/14/20 10:55 Received Sodium Chloride 0.9% [Saline Flush] Med 06/14/20 10:41 Active 10 ml FLUSH ASDIRECTED PRN Saline Lock Insert [OM.PC] Stat Oth 06/14/20 10:41 Ordered Medication Orders Sodium Chloride (Saline Flush) 10 ml FLUSH ASDIRECTED PRN PRN Reason: Keep Vein Open Last Admin: 06/14/20 10:55 Dose: 10 ml Documented by: KENDALL Labs: Laboratory Tests 06/14/20 06/14/20 06/14/20 Range/Units 10:55 10:55 10:55 WBC 4.37 (3.98-10.04) K/mm3 RBC 4.22 (3.98-5.22) M/mm3 Hgb 10.7 L (11.2-15.7) gm/dl Hct 36.6 (34.1-44.9) % MCV 86.7 (79.4-94.8) fl MCH 25.4 L (25.6-32.2) pg MCHC 29.2 L (32.2-35.5) g/dl RDW Std Deviation 47.9 H (36.4-46.3) fL Plt Count 200 (182-369) K/mm3 MPV 10.5 (9.4-12.3) fl Neut % (Auto) 60.4 (34.0-71.1) % Lymph % (Auto) 29.5 (19.3-51.7) % [place] % (Auto) 6.4 (4.7-12.5) % Eos % (Auto) 3.2 (0.7-5.8) Baso % (Auto) 0.5 (0.1-1.2) % Neut # (Auto) 2.64 (1.56-6.13) K/mm3 Lymph # (Auto) 1.29 (1.18-3.74) K/mm3 [place] # (Auto) 0.28 (0.24-0.36) K/mm3 Eos # (Auto) 0.14 (0.04-0.36) K/mm3 Baso # (Auto) 0.02 (0.01-0.08) K/mm3 Manual Slide Review Normal smear Sodium 144 (136-145) mEq/L Potassium 3.8 (3.5-5.1) mEq/L Chloride 106 (98-107) mEq/L Carbon Dioxide 29 (21-32) mEq/L Anion Gap 12.8 (5-15) BUN 14 (7-18) mg/dL Creatinine 1.1 H (0.55-1.02) mg/dL Est Cr Clr Drug Dosing 46.63 mL/min Estimated GFR (MDRD) 49 (>60) mL/min BUN/Creatinine Ratio 12.7 L (14-18) Glucose 191 H (83-115) mg/dL Serum Osmolality 304 H (280-300) mosm/kg Lactic Acid (0.4-2.0) mmol/L Calcium 9.4 (8.5-10.1) mg/dL Magnesium 1.3 L (1.8-2.4) mg/dl Total Bilirubin 0.4 (0.2-1.0) mg/dL AST 17 (15-37) U/L ALT 21 (14-59) U/L Alkaline Phosphatase 126 H (46-116) U/L Creatine Kinase 74 (26-192) U/L C-Reactive Protein 2.9 H* (<1.0) mg/dL NT-Pro-B Natriuret Pep 184 H (0-125) pg/mL Total Protein 7.4 (6.4-8.2) g/dl Albumin 3.2 L (3.4-5.0) g/dl Globulin 4.2 gm/dL Albumin/Globulin Ratio 0.8 L (1-2) Urine Color (Yellow) Urine Appearance (Clear) Urine pH (5.0-8.0) Ur Specific [place] (1.005-1.030) Urine Protein (Negative) Urine Glucose (UA) (Negative) Urine Ketones (Negative) Urine Occult Blood (Negative) Urine Nitrite (Negative) Urine Bilirubin (Negative) Urine Urobilinogen (0.2-1.0) Ur Leukocyte Esterase (Negative) Ketones (0.0-0.3) mM 06/14/20 06/14/20 06/14/20 Range/Units 10:55 10:55 11:15 WBC (3.98-10.04) K/mm3 RBC (3.98-5.22) M/mm3 Hgb (11.2-15.7) gm/dl Hct (34.1-44.9) % MCV (79.4-94.8) fl MCH (25.6-32.2) pg MCHC (32.2-35.5) g/dl RDW Std Deviation (36.4-46.3) fL Plt Count (182-369) K/mm3 MPV (9.4-12.3) fl Neut % (Auto) (34.0-71.1) % Lymph % (Auto) (19.3-51.7) % [place] % (Auto) (4.7-12.5) % Eos % (Auto) (0.7-5.8) Baso % (Auto) (0.1-1.2) % Neut # (Auto) (1.56-6.13) K/mm3 Lymph # (Auto) (1.18-3.74) K/mm3 [place] # (Auto) (0.24-0.36) K/mm3 Eos # (Auto) (0.04-0.36) K/mm3 Baso # (Auto) (0.01-0.08) K/mm3 Manual Slide Review Sodium (136-145) mEq/L Potassium (3.5-5.1) mEq/L Chloride (98-107) mEq/L Carbon Dioxide (21-32) mEq/L Anion Gap (5-15) BUN (7-18) mg/dL Creatinine (0.55-1.02) mg/dL Est Cr Clr Drug Dosing mL/min Estimated GFR (MDRD) (>60) mL/min BUN/Creatinine Ratio (14-18) Glucose (83-115) mg/dL Serum Osmolality (280-300) mosm/kg Lactic Acid 1.2 (0.4-2.0) mmol/L Calcium (8.5-10.1) mg/dL Magnesium (1.8-2.4) mg/dl Total Bilirubin (0.2-1.0) mg/dL AST (15-37) U/L ALT (14-59) U/L Alkaline Phosphatase (46-116) U/L Creatine Kinase (26-192) U/L C-Reactive Protein (<1.0) mg/dL NT-Pro-B Natriuret Pep (0-125) pg/mL Total Protein (6.4-8.2) g/dl Albumin (3.4-5.0) g/dl Globulin gm/dL Albumin/Globulin Ratio (1-2) Urine Color Yellow (Yellow) Urine Appearance Clear (Clear) Urine pH 6.5 (5.0-8.0) Ur Specific [place] 1.020 (1.005-1.030) Urine Protein Negative (Negative) Urine Glucose (UA) Negative (Negative) Urine Ketones Negative (Negative) Urine Occult Blood Negative (Negative) Urine Nitrite Negative (Negative) Urine Bilirubin Negative (Negative) Urine Urobilinogen 0.2 (0.2-1.0) Ur Leukocyte Esterase Negative (Negative) Ketones 0.33 (0.0-0.3) mM Meds: Medications Generic Name Dose Route Start Last Admin Trade Name Freq PRN Reason Stop Dose Admin Sodium Chloride 10 ml 06/14/20 10:41 06/14/20 10:55 Saline Flush FLUSH 10 ml ASDIRECTED PRN Administration Keep Vein Open Discontinued Medications Generic Name Dose Route Start Last Admin Trade Name Freq PRN Reason Stop Dose Admin Magnesium Sulfate 2 gm in 50 mls @ 25 mls/hr 06/14/20 11:56 06/14/20 12:19 Magnesium Sulfate In Water Premix IV 06/14/20 13:55 25 mls/hr ONETIME ONE Administration - Re-Assessments/Exams Free Text/Narrative Re-Assessment/Exam: 06/14/20 11:44 Nothing acute is appreciated on portable chest xray per radiologist interpretation. 06/14/20 12:19 Labs reveal a WBC of 4.37, hemoglobin 10.7, hematocrit 36.6, sodium is 144, potassium 3.8, creatinine 1.1, BUN 14, glucose is slightly elevated at 191, lactic acid 1.2, magnesium 1.3, AST 17, ALT is 21, alk phos 126, creatinine kinase 74, C-reactive protein 2.9, proBNP 184, serum ketones 0.33, urinalysis is completely unremarkable. I have ordered for this patient to receive Magnesium 2 gm IV now. 06/14/20 12:28 serum osmo is only slightly elevated at 304 06/14/20 13:54 Patient's labs are essentially unremarkable. I have ordered nursing staff to attempt to ambulate the patient in the plummer once her magnesium infusion has completed. She will then likely be discharged to home. Social work has also been updated on this plan. 06/14/20 14:40 Patient was able to ambulate in the plummer with a walker and nursing staff as a standby assist. Patient tolerated very well. Patient will be able to be discharged home. Departure - Departure Time of Disposition: 14:37 Disposition: Home, Self-Care 01 Condition: Fair Clinical Impression: Fall Qualifiers: Encounter type: initial encounter Qualified Code(s): W19.XXXA - Unspecified fall, initial encounter - Discharge Information Prescriptions: Magnesium Chloride [Slow-Mag] 71.5 mg PO DAILY #20 tablet. Referrals: PCP,Not In Area [Primary Care Provider] - Forms: ED Department Discharge Additional Instructions: You were seen in the emergency department due to falling at home. Full work-up is completed. Chest x-ray and electrocardiogram are unremarkable, and your lab work was also unremarkable other than a low magnesium level. You received magnesium in your IV and you will need to start taking a magnesium supplement called Slow-Mag. I have sent this prescription to your pharmacy. You will need to take 1 tab daily. You also need to resume taking your diabetic medications and your blood thinners. You need to establish care with a primary physician as was previously recommended and last emergency room visit. You can schedule this appointment at [facility] at [phone]. Sepsis Event Note (ED) - Evaluation Sepsis Screening Result: No Definite Risk - Focused Exam Vital Signs: Vital Signs Temp Pulse Resp BP Pulse Ox 06/14/20 14:47 82 16 187/126 H 94 L 06/14/20 10:17 97.4 F 80 16 141/81 H 93 L - My Orders Last 24 Hours: My Active Orders 06/14/20 10:41 EKG Documentation Completion [RC] STAT Sodium Chloride 0.9% [Saline Flush] 10 ml FLUSH ASDIRECTED PRN Saline Lock Insert [OM.PC] Stat 06/14/20 10:55 A1C [GLYCOSYLATED HEMOGLOBIN,HGBA1C] [CHEM] Stat 06/14/20 11:15 Insert Carey Catheter [Insert Urinary Catheter] [OM.PC] Stat Urinary Catheter Assessment [RC] ASDIRECTED - Assessment/Plan Last 24 Hours: My Active Orders 06/14/20 10:41 EKG Documentation Completion [RC] STAT Sodium Chloride 0.9% [Saline Flush] 10 ml FLUSH ASDIRECTED PRN Saline Lock Insert [OM.PC] Stat 06/14/20 10:55 A1C [GLYCOSYLATED HEMOGLOBIN,HGBA1C] [CHEM] Stat 06/14/20 11:15 Insert Carey Catheter [Insert Urinary Catheter] [OM.PC] Stat Urinary Catheter Assessment [RC] ASDIRECTED
--- NOTE | 2020-06-14 11:37 | CR ---
Chest: Portable view of the chest was obtained. Comparison: Prior chest x-ray of 06/03/20. Right shoulder prosthesis is seen. Heart size and mediastinum are within normal limits for portable technique. Stable pleural thickening is seen along the right lateral chest in an area of old rib fractures. No acute parenchymal change is appreciated. Impression: 1. Findings as noted above. 2. Nothing acute is definitely appreciated. Diagnostic code #2
[2020-06-14] MEDS ORDERED: Magnesium Sulfate/Water 2 GM/50 ML BAG IV ONE (11:56)
== END 2020-06-14 17:20 | disposition home or self-care (01) ==
LOC: JD.ED 10:17
DX: M25.511 Pain in right shoulder (principal); L30.4 Erythema intertrigo; E78.00 Pure hypercholesterolemia, unspecified; I10 Essential (primary) hypertension; J45.909 Unspecified asthma, uncomplicated; E11.40 Type 2 diabetes mellitus with diabetic neuropathy, unspecified; Z86.711 Personal history of pulmonary embolism; Z77.22 Contact with and (suspected) exposure to environmental tobacco smoke (acute) (chronic); Z88.8 Allergy status to other drugs, medicaments and biological substances; Z79.01 Long term (current) use of anticoagulants; Z79.899 Other long term (current) drug therapy; Z79.82 Long term (current) use of aspirin; W06.XXXA Fall from bed, initial encounter
CPT/HCPCS: 36415; 71045; 80053; 81003; 82009; 82550; 83036; 83605; 83735; 83880; 83930; 85025; 86140; 93005; 96365; 96366; 99284; J3475; 93010; 99283

== ENCOUNTER 2021-04-03 18:34 | Emergency (ER) | payer MEDICARE, MEDICAID ==
--- NOTE | 2021-04-03 20:35 | EDM.PDOC ---
ED HPI GENERAL MEDICAL PROBLEM - General Chief Complaint: Respiratory Problem Stated Complaint: [facility]- Time Seen by Provider: 04/03/21 20:17 Source of Information: Reports: Patient History Limitations: Reports: No Limitations - History of Present Illness INITIAL COMMENTS - FREE TEXT/NARRATIVE: Mrs. Mckeon is a pleasant 70-year-old woman who is now brought to the ED by EMS from [facility], stating that she has had a nonproductive cough with occasional chills for the past 2 weeks, followed by dyspnea on exertion since last night. No recent fever. She has not taken any omeg-[id number] or home remedies to address her symptoms since the onset. The patient states that she had a similar symptoms about 7 or 8 years ago, when she was diagnosed with pneumonia. Here in the ED tonight, the patient's initial BP is found to be elevated at 160/70, with slight tachypnea of 22 rpm. She is afebrile saturating 91% on room air, but down to 86% when she exerted herself. She appears to be comfortable, in no acute distress. The patient denies having a recent sore throat, ear pain, nasal or sinus congestion, chest pain, palpitations, nausea, vomiting, constipation, diarrhea, abdominal pain, urinary symptoms, recent weight gain or weight loss, recent bloody bowel movements or black bowel movements, recent joint aches, headaches, or rashes. I reviewed the PMHx/PSHx/SocHx, which was reviewed with the patient by the RN. The patient's PCP is Dr. Kody Riojas. She does not believe that she has received a COVID vaccination, or an influenza vaccination this season. 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 - Related Data Allergies Allergy/AdvReac Type Severity Reaction Status Date / Time metformin Allergy Itching Verified 06/14/20 10:31 Home Meds: Home Meds Albuterol Sulfate [Albuterol Sulfate Hfa] 2 puff IH Q6H PRN 06/03/20 [History] Aspirin [Halfprin] 81 mg PO DAILY 06/03/20 [History] Beclomethasone Dipropionate [Qvar Redihaler] 1 puff IH BID 06/03/20 [History] Escitalopram [Lexapro] 10 mg PO DAILY 06/03/20 [History] Gabapentin [Neurontin] 100 mg PO TID 06/03/20 [History] Metoprolol Succinate 25 mg PO DAILY 06/03/20 [History] Rivaroxaban [Xarelto] 20 mg PO DAILY 06/03/20 [History] Rosuvastatin Calcium 20 mg PO BEDTIME 06/03/20 [History] traMADol [Ultram] 50 mg PO BID 06/03/20 [History] Menthol/Zinc Oxide [Calmoseptine] 113 gm TOP BID #1 tube 06/10/20 [Rx] Magnesium Chloride [Slow-Mag] 71.5 mg PO DAILY #20 tablet. 06/14/20 [Rx] Past Medical History HEENT History: Reports: Impaired Vision Other HEENT History: wears eyeglasses. Upper dentures, no teeth on bottom. Cardiovascular History: Reports: High Cholesterol, Hypertension Respiratory History: Reports: Asthma, PE [employer] History: Reports: Neurological History: Reports: Neuropathy, Diabetic Endocrine/Metabolic History: Reports: Diabetes, Type II, Obesity/BMI 30+ - Past Surgical History Musculoskeletal Surgical History: Reports: Knee Replacement, Shoulder Surgery Social & Family History - Caffeine Use Caffeine Use: Reports: Coffee, Soda - Living Situation & Occupation Living situation: Reports: , Extended Care Facility ([facility]) ED ROS GENERAL - Review of Systems Review Of Systems: Comprehensive ROS is negative, except as noted in HPI. ED EXAM, GENERAL - Physical Exam Exam: See Below Exam Limited By: No Limitations General Appearance: Alert, WD/WN, No Apparent Distress (initially found sleeping) Eye Exam: Bilateral Eye: EOMI, Normal Inspection Ears: Normal External Exam, Hearing Grossly Normal Nose: Normal Inspection Throat/Mouth: Normal Inspection, Normal Lips, Normal Voice, No Airway Compromise Head: Atraumatic, Normocephalic Neck: Normal Inspection, Supple, Non-Tender, Full Range of Motion Respiratory/Chest: No Respiratory Distress, No Accessory Muscle Use, Rhonchi (scattered). No: Decreased Breath Sounds, Crackles, Wheezing, Stridor, Prolonged Expiration Cardiovascular: Normal Peripheral Pulses, Regular Rate, Rhythm, No Gallop, No JVD, No Murmur, No Rub Peripheral Pulses: 3+: Radial (L), Radial (R) GI/Abdominal: Normal Bowel Sounds, Soft, Non-Tender, No Organomegaly, No Distention, No Abnormal Bruit, No Mass Back Exam: Normal Inspection, Full Range of Motion, NT Extremities: Normal Inspection, Normal Range of Motion, Normal Capillary Refill Neurological: Alert, Oriented, Normal Cognition, No Motor/Sensory Deficits Psychiatric: Normal Affect Skin Exam: Warm, Dry, Intact, Normal Color, No Rash #1 Interpretation EKG Date: 04/03/21 Time: 21:05 Rhythm: NSR Rate (Beats/Min): 90 [place]: 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) QRS: Other (Late transition) ST-T: Normal QT: Normal Comparison: No Change (06/14/2020) Course - Vital Signs Last Recorded V/S: Last Vital Signs Temp 37.1 C 04/03/21 18:51 Pulse 99 04/03/21 18:51 Resp 22 H 04/03/21 18:51 BP 160/70 H 04/03/21 18:51 Pulse Ox 91 L 04/03/21 18:51 - Orders/Labs/Meds Orders: Active Orders 24 hr Category Date Time Status Chest 2V [CR] Stat Exams 04/03/21 20:29 Taken BLOOD CULTURE [MREF] Stat Lab 04/03/21 21:15 Received BLOOD CULTURE [MREF] Stat Lab 04/03/21 21:26 Received Blood Culture x2 Reflex Set [OM.PC] Stat Oth 04/03/21 20:29 Ordered Labs: Laboratory Tests 04/03/21 04/03/21 04/03/21 Range/Units 19:28 21:15 21:15 WBC 7.88 (3.98-10.04) K/mm3 RBC 4.08 (3.98-5.22) M/mm3 Hgb 11.7 (11.2-15.7) gm/dl Hct 38.4 (34.1-44.9) % MCV 94.1 D (79.4-94.8) fl MCH 28.7 (25.6-32.2) pg MCHC 30.5 L (32.2-35.5) g/dl RDW Std Deviation 44.0 (36.4-46.3) fL Plt Count 195 (182-369) K/mm3 MPV 9.8 (9.4-12.3) fl Neutrophils % (Manual) 81 H (40-60) % Band Neutrophils % 2 (0-10) % Lymphocytes % (Manual) 8 L (20-40) % Atypical Lymphs % 4 % Monocytes % (Manual) 3 (2-10) % Eosinophils % (Manual) 2 (0.7-5.8) % Basophils % (Manual) 0 L (0.1-1.2) Platelet Estimate Adequate Hypochromasia 1+ slight RBC Morph Comment Not Reportable PT 10.7 (9.7-12.0) SECONDS INR 0.96 APTT 26.0 (21.7-31.4) SECONDS D-Dimer, Quantitative 0.85 H (0.19-0.50) mg/L Sodium (136-145) mEq/L Potassium (3.5-5.1) mEq/L Chloride (98-107) mEq/L Carbon Dioxide (21-32) mEq/L Anion Gap (5-15) BUN (7-18) mg/dL Creatinine (0.55-1.02) mg/dL Est Cr Clr Drug Dosing mL/min Estimated GFR (MDRD) (>60) mL/min BUN/Creatinine Ratio (14-18) Glucose (70-99) mg/dL Lactic Acid (0.4-2.0) mmol/L Calcium (8.5-10.1) mg/dL Total Bilirubin (0.2-1.0) mg/dL AST (15-37) U/L ALT (14-59) U/L Alkaline Phosphatase (46-116) U/L Troponin I (0.00-0.056) ng/mL C-Reactive Protein (<1.0) mg/dL NT-Pro-B Natriuret Pep (0-125) pg/mL Total Protein (6.4-8.2) g/dl Albumin (3.4-5.0) g/dl Globulin gm/dL Albumin/Globulin Ratio (1-2) Influenza Type A RNA Negative (NEGATIVE) Influenza Type B RNA Negative (NEGATIVE) SARS-CoV-2 RNA (NAYELI) Negative (NEGATIVE) 04/03/21 04/03/21 04/03/21 Range/Units 21:15 21:15 21:15 WBC (3.98-10.04) K/mm3 RBC (3.98-5.22) M/mm3 Hgb (11.2-15.7) gm/dl Hct (34.1-44.9) % MCV (79.4-94.8) fl MCH (25.6-32.2) pg MCHC (32.2-35.5) g/dl RDW Std Deviation (36.4-46.3) fL Plt Count (182-369) K/mm3 MPV (9.4-12.3) fl Neutrophils % (Manual) (40-60) % Band Neutrophils % (0-10) % Lymphocytes % (Manual) (20-40) % Atypical Lymphs % % Monocytes % (Manual) (2-10) % Eosinophils % (Manual) (0.7-5.8) % Basophils % (Manual) (0.1-1.2) Platelet Estimate Hypochromasia RBC Morph Comment PT (9.7-12.0) SECONDS INR APTT (21.7-31.4) SECONDS D-Dimer, Quantitative (0.19-0.50) mg/L Sodium 138 (136-145) mEq/L Potassium 4.6 (3.5-5.1) mEq/L Chloride 102 (98-107) mEq/L Carbon Dioxide 29 (21-32) mEq/L Anion Gap 11.6 (5-15) BUN 30 H (7-18) mg/dL Creatinine 1.5 H (0.55-1.02) mg/dL Est Cr Clr Drug Dosing 34.20 mL/min Estimated GFR (MDRD) 34 (>60) mL/min BUN/Creatinine Ratio 20.0 H (14-18) Glucose 123 H (70-99) mg/dL Lactic Acid 1.1 (0.4-2.0) mmol/L Calcium 9.0 (8.5-10.1) mg/dL Total Bilirubin 0.2 (0.2-1.0) mg/dL AST 14 L (15-37) U/L ALT 15 (14-59) U/L Alkaline Phosphatase 125 H (46-116) U/L Troponin I < 0.017 (0.00-0.056) ng/mL C-Reactive Protein 1.4 H* (<1.0) mg/dL NT-Pro-B Natriuret Pep 344 H (0-125) pg/mL Total Protein 8.1 (6.4-8.2) g/dl Albumin 3.4 (3.4-5.0) g/dl Globulin 4.7 gm/dL Albumin/Globulin Ratio 0.7 L (1-2) Influenza Type A RNA (NEGATIVE) Influenza Type B RNA (NEGATIVE) SARS-CoV-2 RNA (NAYELI) (NEGATIVE) - Re-Assessments/Exams Free Text/Narrative Re-Assessment/Exam: 04/03/21 20:32 The patient's oxygen saturation was 91% on room air, but dropped into the mid 80s when she was getting off the commode. She was therefore placed on 2 L of oxygen per nasal cannula, which raised her SpO2 to 99%. I stopped the O2, and we will continue to observe her SpO2, and restart oxygen if necessary. I have ordered a work-up that includes several blood tests,, 2 sets of blood cultures, a swab for the SARS-CoV-2 virus and influenza A + B viruses, a chest x-ray, and an ECG. 04/03/21 21:01 Notified by Evangelina BEGUM that the patient's SpO2 dropped down to 86% on room air. She was therefore placed on 1 L of oxygen per nasal cannula. Her SpO2 is now 90%. 04/03/21 21:04 Two-view chest radiograph reviewed. Poor penetration. The cardiac silhouette is within normal limits. No pulmonary vascular congestion. No pleural effusions. No focal infiltrate. No pneumothorax. Pleural thickening noted on the right. Possible old/well-healed right 8th rib. Formal read per the Radiologist pending. 04/03/21 22:49 The patient's CBC is unremarkable. Her CMP is remarkable for a BUN/Cr modestly elevated at 30/1.5, and mild hyperglycemia of 123. Her alkaline phosphatase is slightly elevated at 125, with the remainder of her CMP being unremarkable. Her lactic acid level is within normal limits at 1.1. Her CRP is mildly elevated at 1.4. Her troponin is undetectably low. Her D-dimer is slightly elevated at 0.85. Her coags are within normal limits. Her swab for the SARS-CoV-2 virus and influenza A + B viruses is negative for all. 04/03/21 22:57 Test results discussed with the patient. As above, today's work-up is grossly unremarkable, and most consistent with a viral URI with cough. I explained to the patient that she does not have pneumonia, and therefore does not need antibiotics. She asked that I prescribe something for her, anyway, and I had to explain to her that that is not possible - that there are no medicines that have been shown to treat the symptoms of a viral URI - that it will simply have to run its course. The only other issue is the patient's oxygen saturation. When I went to talk to her, I found her saturating at 98% on 1 L of oxygen per nasal cannula. I turned her oxygen off, and at present, she is saturating 90% on room air. I suspect that she has an underlying condition causing her to have a chronically low oxygen saturation. We will observe her for a while, to see if she would benefit from a small dose of supplemental oxygen. 04/03/21 23:09 The patient SpO2 is maintaining 90% on room air. I will discharge her back to the group home. Departure - Departure Time of Disposition: 23:09 Disposition: Home, Self-Care 01 Condition: Good Clinical Impression: Viral URI with cough - Discharge Information *PRESCRIPTION DRUG MONITORING PROGRAM REVIEWED*: Not Applicable *COPY OF PRESCRIPTION DRUG MONITORING REPORT IN PATIENT EMIL: Not Applicable Referrals: Kody Riojas MD [Primary Care Provider] - Forms: ED Department Discharge Additional Instructions: Mrs. Mckeon was seen in the emergency room for 2 weeks of a dry cough with occasional chills, and shortness of breath with exertion since last night. Work-up in the ER included several blood tests, 2 sets of blood cultures, a swab for the SARS-CoV-2 virus and influenza A + B viruses, a chest x-ray, and an ECG. Her work-up was grossly unremarkable, finding no pneumonia, pulmonary embolus, or recent cardiac injury. Based on her history, physical exam, and ER tests, Mrs. Mckeon is most likely suffering from a viral URI with cough. Unfortunately, there are no medicines to treat a viral URI - it will have to run its course. Antibiotics are not indicated. We do not recommend treatment with any [id number] cough or cold remedies, as they have been shown to be of no benefit, but do have side effects, such as an upset stomach. Mrs. Kesslers oxygen saturation was found to be borderline low in the ER, 90% on room air, although it dropped lower when she exerted herself. We suspect this is due to an underlying medical condition, such as body habitus. We recommend that Mrs. Mckeon follow-up with her PCP, Dr. Kody Riojas, at the next available appointment. He may want to start her on some supplemental oxygen when she exerts herself. If any other problems, please do not hesitate to return Mrs. Mckeon to the ER. Sepsis Event Note (ED) - Evaluation Sepsis Screening Result: Possible Sepsis Risk - Focused Exam Vital Signs: Vital Signs Temp Pulse Resp BP Pulse Ox 04/03/21 18:51 37.1 C 99 22 H 160/70 H 91 L - My Orders Last 24 Hours: My Active Orders 04/03/21 20:29 Chest 2V [CR] Stat Blood Culture x2 Reflex Set [OM.PC] Stat 04/03/21 21:15 BLOOD CULTURE [MREF] Stat 04/03/21 21:26 BLOOD CULTURE [MREF] Stat - Assessment/Plan Last 24 Hours: My Active Orders 04/03/21 20:29 Chest 2V [CR] Stat Blood Culture x2 Reflex Set [OM.PC] Stat 04/03/21 21:15 BLOOD CULTURE [MREF] Stat 04/03/21 21:26 BLOOD CULTURE [MREF] Stat
[2021-04-03 21:26] LABS: CORONAVIRUS COVID-19 NAA NEGATIVE (NEGATIVE)
--- NOTE | 2021-04-04 05:27 | CR ---
Chest: PA and lateral views of the chest were obtained. Comparison: Prior chest x-ray of 06/14/20. Heart size and mediastinum are within normal limits. Density is seen along the right lateral chest which appears to be chronic. This correlates to old healed rib fractures. No acute parenchymal change is otherwise seen. Right shoulder prosthesis is noted. Mild scattered disc space narrowing is seen within the thoracic spine with minimal scattered endplate osteophytes. Impression: 1. Findings as noted above. 2. Nothing acute is appreciated on two-view chest x-ray. Diagnostic code #2
== END 2021-04-04 00:40 | disposition home or self-care (01) ==
LOC: JD.ED 18:34
DX: J06.9 Acute upper respiratory infection, unspecified (principal); E11.40 Type 2 diabetes mellitus with diabetic neuropathy, unspecified; E66.9 Obesity, unspecified; I10 Essential (primary) hypertension; J45.909 Unspecified asthma, uncomplicated; E78.00 Pure hypercholesterolemia, unspecified; Z20.822 Contact with and (suspected) exposure to COVID-19; Z88.8 Allergy status to other drugs, medicaments and biological substances; Z79.82 Long term (current) use of aspirin; Z79.899 Other long term (current) drug therapy
CPT/HCPCS: 0240U; 36415; 71046; 80053; 83605; 83880; 84484; 85007; 85027; 85379; 85610; 85730; 86140; 87040; 93005; 99285

== ENCOUNTER 2021-07-11 10:28 | Emergency (ER) | payer MEDICARE, MEDICAID ==
[2021-07-11] MEDS ORDERED: Sodium Chloride 0.9% 1,000 ML IV ONE (15:20)
[2021-07-11] MEDS ORDERED: cefTRIAXone 1 GM in Sodium Chloride 0.9% 100 ML IV ONE (15:20)
[2021-07-11] MEDS ORDERED: Sodium Chloride 0.9% 10 ML Syringe FLUSH PRN (15:20)
== END 2021-07-11 18:30 | disposition home or self-care (01) ==
LOC: JD.ED 10:28
DX: S22.020A Wedge compression fracture of second thoracic vertebra, initial encounter for closed fracture (principal); N39.0 Urinary tract infection, site not specified; N17.9 Acute kidney failure, unspecified; E78.00 Pure hypercholesterolemia, unspecified; I10 Essential (primary) hypertension; E11.40 Type 2 diabetes mellitus with diabetic neuropathy, unspecified; E66.9 Obesity, unspecified; Z68.42 Body mass index [BMI] 45.0-49.9, adult; Z88.8 Allergy status to other drugs, medicaments and biological substances; Z79.82 Long term (current) use of aspirin; Z79.01 Long term (current) use of anticoagulants; Z79.899 Other long term (current) drug therapy; W05.2XXA Fall from non-moving motorized mobility scooter, initial encounter
CPT/HCPCS: 36415; 70450; 72125; 80053; 81001; 84484; 85025; 93005; 96365; 99284; J0696; J7030

== ENCOUNTER 2021-11-09 11:30 | Emergency (ER) | payer MEDICARE, MEDICAID ==
[2021-11-09] MEDS ORDERED: Cefdinir 300 MG Cap PO ONE (13:22)
== END 2021-11-09 14:25 | disposition home or self-care (01) ==
LOC: JD.ED 11:30
DX: N30.00 Acute cystitis without hematuria (principal); E11.21 Type 2 diabetes mellitus with diabetic nephropathy; M19.90 Unspecified osteoarthritis, unspecified site; I10 Essential (primary) hypertension; E78.00 Pure hypercholesterolemia, unspecified; F32.A Depression, unspecified; E66.9 Obesity, unspecified; Z68.41 Body mass index [BMI] 40.0-44.9, adult; W19.XXXA Unspecified fall, initial encounter
CPT/HCPCS: 51702; 72100; 73030; 73502; 81001; 82947; 87086; 87088; 87186; 99284; A9270

== ENCOUNTER 2021-11-26 00:18 | Emergency (ER) | payer MEDICARE, MEDICAID ==
[2021-11-26] MEDS ORDERED: Iopamidol 612 MG/ML 100 ML Bottle IVPUSH ONE (01:54)
[2021-11-26] MEDS ORDERED: Ondansetron 4 MG/2 ML SDV IVPUSH ONE (01:54)
[2021-11-26] MEDS ORDERED: Famotidine 20 MG/2 ML SDV IVPUSH ONE (01:54)
[2021-11-26] MEDS: Sodium Chloride 0.9% 10 ML Syringe FLUSH PRN ×2 (02:17→03:08)
[2021-11-26] MEDS ORDERED: Amoxicillin/Clavulanate K 875-125 MG Tab PO ONE (03:57)
== END 2021-11-26 06:40 | disposition home or self-care (01) ==
LOC: JD.ED 00:18
DX: N39.0 Urinary tract infection, site not specified (principal); K59.00 Constipation, unspecified; R11.10 Vomiting, unspecified; E78.00 Pure hypercholesterolemia, unspecified; I10 Essential (primary) hypertension; E11.9 Type 2 diabetes mellitus without complications; E66.9 Obesity, unspecified; Z68.42 Body mass index [BMI] 45.0-49.9, adult; Z88.8 Allergy status to other drugs, medicaments and biological substances; Z79.02 Long term (current) use of antithrombotics/antiplatelets; Z79.899 Other long term (current) drug therapy; Z87.891 Personal history of nicotine dependence
CPT/HCPCS: 36415; 74177; 80053; 81001; 83690; 83735; 85025; 85610; 96374; 96375; 99285; A9270; J2405; J3490; Q9967; 99284

== ENCOUNTER 2022-02-14 08:40 | Day surgery (SDC) | payer MEDICARE, MEDICAID ==
[2022-02-14] MEDS: Polymyxin B/Trimethoprim 10 ML Bottle EYELF SCH ×4 (08:40→10:28)
[2022-02-14] MEDS: Brimonidine 0.2% Ophth Soln 5 ML Bottle EYELF SCH ×4 (08:45→10:28)
[2022-02-14] MEDS: Phenylephrine 2.5% Ophth Soln 2 ML Bot EYELF SCH ×6 (08:50→10:03)
[2022-02-14] MEDS: Tropicamide 1% Ophth Soln 15 ML Bottle EYELF SCH ×4 (08:55→09:35)
[2022-02-14] MEDS: Tetracaine HCl/PF 0.5% 4 ML Bottle EYEBOTH SCH ×4 (09:41→10:11)
[2022-02-14] MEDS: Cefuroxime 10 MG/ML SYRINGE EYELF SCH ×2 (09:42→10:27)
[2022-02-14] MEDS: Lidocaine 1% PF 2 ML SDV INJECT SCH ×2 (09:42→10:12)
[2022-02-14] MEDS: Pilocarpine 4% Ophth Soln 15 ML Bot EYELF SCH ×2 (09:42→10:28)
== END 2022-02-14 10:40 | disposition home or self-care (01) ==
LOC: JD.SDS 08:40
PROVIDERS: ATTEND Ophthalmology
DX: E10.36 Type 1 diabetes mellitus with diabetic cataract (principal); H25.89 Other age-related cataract; H21.543 Posterior synechiae (iris), bilateral; E10.3293 Type 1 diabetes mellitus with mild nonproliferative diabetic retinopathy without macular edema, bilateral; H02.831 Dermatochalasis of right upper eyelid; H02.834 Dermatochalasis of left upper eyelid; H16.223 Keratoconjunctivitis sicca, not specified as Sjogren's, bilateral; H21.81 Floppy iris syndrome; H21.42 Pupillary membranes, left eye; J45.909 Unspecified asthma, uncomplicated; E78.00 Pure hypercholesterolemia, unspecified; I10 Essential (primary) hypertension; Z98.890 Other specified postprocedural states; Z79.899 Other long term (current) drug therapy; Z88.8 Allergy status to other drugs, medicaments and biological substances
CPT/HCPCS: 66982; C1780; J0697

== ENCOUNTER 2024-07-18 21:18 | Inpatient (IN) | payer MEDICARE, MEDICAID ==
[2024-07-18 22:07] LABS: BASOPHILS PERCENT AUTO 0.4 % (0.0-1.0); EOSINOPHILS ABSOLUTE AUTO 0.1 K/mm3 (0.0-0.4); EOSINOPHILS PERCENT AUTO 0.7 % (0.0-6.0); HEMATOCRIT 35.2 % (37.0-47.0); HEMOGLOBIN 11.2 gm/dl (12.0-16.0); IMMATURE GRAN ABSOLUTE AUTO 0.02 K/mm3 (0.00-0.05); IMMATURE GRAN PERCENT AUTO 0.3 % (0.0-0.4); LYMPHOCYTES ABSOLUTE AUTO 0.4 K/mm3 (1.0-4.8); LYMPHOCYTES PERCENT AUTO 5.1 % (24.0-44.0); MEAN CORPUSCULAR HEMOGLOBIN 29.2 pg (28.0-32.0); MEAN CORPUSCULAR HGB CONC 31.8 g/dl (32.0-36.0); MEAN CORPUSCULAR VOLUME 91.9 fl (83.0-99.0); MEAN PLATELET VOLUME 9.9 fl (9.4-12.3); MONOCYTES ABSOLUTE AUTO 0.4 K/mm3 (0.0-0.8); MONOCYTES PERCENT AUTO 5.1 % (0.0-8.0); NEUTROPHILS ABSOLUTE AUTO 6.2 K/mm3 (1.8-7.7); NEUTROPHILS PERCENT AUTO 88.4 % (41.0-71.0); PLATELET COUNT,PLT 138 K/mm3 (150-400); RED BLOOD CELL COUNT 3.83 M/mm3 (4.10-5.30); WHITE BLOOD CELL COUNT,WBC 7.05 K/mm3 (3.9-11.3)
[2024-07-18 22:16] LABS: CORONAVIRUS COVID-19 NAA NEGATIVE (NEGATIVE); INFLUENZA A NAA NEGATIVE (NEGATIVE); RESPIRATORY SYNCYTIAL VIR NAA NEGATIVE (NEGATIVE)
[2024-07-18 22:24] LABS: INR 1.31; PROTHROMBIN TIME 13.6 SECONDS (9.7-12.0)
[2024-07-18 22:37] LABS: A/G RATIO 0.5 (1-2); ALANINE AMINOTRANSFERASE,ALT 31 U/L (14-59); ALBUMIN 2.6 g/dl (3.4-5.0); ALKALINE PHOSPHATASE 208 U/L (46-116); ANION GAP 11.1 (5-15); ASPARTATE AMNIOTRANSFERASE,AST 40 U/L (15-37); BILIRUBIN TOTAL 0.6 mg/dL (0.2-1.0); BLOOD UREA NITROGEN,BUN 43 mg/dL (7-18); BUN/CREATININE RATIO 18.7 (14-18); CALCIUM 10.2 mg/dL (8.5-10.1); CARBON DIOXIDE,CO2 31 mEq/L (21-32); CHLORIDE,CL 102 mEq/L (98-107); CREATINE KINASE,CK 190 U/L (26-192); CREATININE 2.3 mg/dL (0.55-1.02); ESTIMATED GFR 21 mL/min (>60); GLUCOSE RANDOM 163 mg/dL (70-99); LIPASE 15 U/L (16-77); MAGNESIUM 1.3 mg/dL (1.8-2.4); POTASSIUM,K 4.1 mEq/L (3.5-5.1); PROTEIN TOTAL,TP 7.4 g/dl (6.4-8.2); SODIUM,NA 140 mEq/L (136-145)
[2024-07-18 22:38] LABS: TROPONIN I HIGH SENSITIVITY 723 pg/mL (<=51)
[2024-07-18] MEDS: cefTRIAXone 500 MG Vial IVPUSH ONE (23:02)
[2024-07-18] MEDS: Sodium Chloride 0.9% 2,500 ML IV ONE (23:02)
[2024-07-18] MEDS: Acetaminophen 650 MG Supp RECTAL ONE (23:02)
[2024-07-18 23:42] LABS: APPEARANCE,URINE CLOUDY (Clear); BILIRUBIN,URINE NEGATIVE (Negative); COLOR,URINE YELLOW (Yellow); GLUCOSE,URINE NEGATIVE (Negative); KETONES,URINE NEGATIVE (Negative); LEUKOCYTE ESTERASE,URINE 1+ (Negative); NITRITE,URINE POSITIVE (Negative); OCCULT BLOOD,URINE 2+ (Negative); PH,URINE 5.5 (5.0-8.0); PROTEIN,URINE 2+ (Negative); UROBILINOGEN,URINE 0.2 (0.2-1.0)
[2024-07-18 23:55] LABS: RBC,URINE >100 /hpf (0-5)
[2024-07-18 23:56] LABS: BACTERIA,URINE MANY /hpf (FEW); MUCUS,URINE NOT SEEN /hpf (FEW); SQUAMOUS EPITHELIAL CELLS,UR 0-5 /hpf (0-5); WBC,URINE TOO NUMEROUS TO CNT /hpf (0-5)
[2024-07-19] MEDS: Magnesium Sulf/Wat 4 GM/50 mL 4 GM in Premix Bag 1 BAG IV ONE (02:07)
[2024-07-19] MEDS: Sodium Chloride 0.9% 1,000 ML IV ONE (03:24)
[2024-07-19] MEDS: Sodium Chloride 0.9% 1,000 ML IV SCH ×3 (04:35→23:15)
[2024-07-19 07:24] LABS: BASOPHILS PERCENT AUTO 0.3 % (0.0-1.0); EOSINOPHILS PERCENT AUTO 0.6 % (0.0-6.0); HEMATOCRIT 35.8 % (37.0-47.0); HEMOGLOBIN 10.8 gm/dl (12.0-16.0); IMMATURE GRAN ABSOLUTE AUTO 0.02 K/mm3 (0.00-0.05); IMMATURE GRAN PERCENT AUTO 0.3 % (0.0-0.4); LYMPHOCYTES ABSOLUTE AUTO 1.5 K/mm3 (1.0-4.8); LYMPHOCYTES PERCENT AUTO 22.1 % (24.0-44.0); MEAN CORPUSCULAR HEMOGLOBIN 28.6 pg (28.0-32.0); MEAN CORPUSCULAR HGB CONC 30.2 g/dl (32.0-36.0); MEAN CORPUSCULAR VOLUME 94.7 fl (83.0-99.0); MEAN PLATELET VOLUME 10.2 fl (9.4-12.3); MONOCYTES ABSOLUTE AUTO 0.8 K/mm3 (0.0-0.8); MONOCYTES PERCENT AUTO 12.5 % (0.0-8.0); NEUTROPHILS ABSOLUTE AUTO 4.2 K/mm3 (1.8-7.7); NEUTROPHILS PERCENT AUTO 64.2 % (41.0-71.0); PLATELET COUNT,PLT 138 K/mm3 (150-400); RED BLOOD CELL COUNT 3.78 M/mm3 (4.10-5.30); WHITE BLOOD CELL COUNT,WBC 6.55 K/mm3 (3.9-11.3)
[2024-07-19 07:55] LABS: A/G RATIO 0.5 (1-2); ALANINE AMINOTRANSFERASE,ALT 28 U/L (14-59); ALBUMIN 2.3 g/dl (3.4-5.0); ALKALINE PHOSPHATASE 205 U/L (46-116); ANION GAP 10.5 (5-15); ASPARTATE AMNIOTRANSFERASE,AST 30 U/L (15-37); BILIRUBIN TOTAL 0.4 mg/dL (0.2-1.0); BLOOD UREA NITROGEN,BUN 38 mg/dL (7-18); CALCIUM 9.8 mg/dL (8.5-10.1); CARBON DIOXIDE,CO2 30 mEq/L (21-32); CHLORIDE,CL 103 mEq/L (98-107); CREATINE KINASE,CK 244 U/L (26-192); CREATININE 1.9 mg/dL (0.55-1.02); ESTIMATED GFR 27 mL/min (>60); GLUCOSE RANDOM 109 mg/dL (70-99); MAGNESIUM 1.9 mg/dL (1.8-2.4); POTASSIUM,K 3.5 mEq/L (3.5-5.1); SODIUM,NA 140 mEq/L (136-145)
[2024-07-19 08:01] LABS: TROPONIN I HIGH SENSITIVITY 515 pg/mL (<=51)
[2024-07-19] MEDS: Acetaminophen 325 MG Tab PO PRN (12:45)
[2024-07-19] MEDS ORDERED: 50% Dextrose in Water 50 ML Syringe IVPUSH PRN (15:17)
[2024-07-19] MEDS: Gabapentin 100 MG Cap PO SCH (15:31)
[2024-07-19] MEDS ORDERED: Albuterol/Ipratropium 3.0-0.5 MG/3 ML Neb Soln NEB PRN (15:46)
[2024-07-19 15:48] LABS: TSH 1.152 uIU/mL (0.358-3.74)
[2024-07-19] MEDS: Rivaroxaban 15 MG Tab PO SCH (16:07)
[2024-07-19] MEDS: Insulin Lispro 100 Unit/ML 3 ML KwikPen SUBCUT SCH (16:52)
[2024-07-19] MEDS: Sennosides/Docusate Sodium 50-8.6 MG Tab PO SCH (21:04)
[2024-07-19] MEDS: cefTRIAXone 1 GM Vial IVPUSH SCH (21:04)
[2024-07-20] MEDS: Rosuvastatin 10 MG Tab PO SCH (05:12)
[2024-07-20 07:51] LABS: BASOPHILS PERCENT AUTO 0.2 % (0.0-1.0); EOSINOPHILS ABSOLUTE AUTO 0.2 K/mm3 (0.0-0.4); EOSINOPHILS PERCENT AUTO 4.4 % (0.0-6.0); HEMATOCRIT 34.8 % (37.0-47.0); HEMOGLOBIN 10.7 gm/dl (12.0-16.0); IMMATURE GRAN ABSOLUTE AUTO 0.02 K/mm3 (0.00-0.05); IMMATURE GRAN PERCENT AUTO 0.5 % (0.0-0.4); LYMPHOCYTES ABSOLUTE AUTO 0.5 K/mm3 (1.0-4.8); LYMPHOCYTES PERCENT AUTO 10.8 % (24.0-44.0); MEAN CORPUSCULAR HEMOGLOBIN 28.2 pg (28.0-32.0); MEAN CORPUSCULAR HGB CONC 30.7 g/dl (32.0-36.0); MEAN CORPUSCULAR VOLUME 91.8 fl (83.0-99.0); MEAN PLATELET VOLUME 9.7 fl (9.4-12.3); MONOCYTES ABSOLUTE AUTO 0.5 K/mm3 (0.0-0.8); MONOCYTES PERCENT AUTO 10.6 % (0.0-8.0); NEUTROPHILS ABSOLUTE AUTO 3.2 K/mm3 (1.8-7.7); NEUTROPHILS PERCENT AUTO 73.5 % (41.0-71.0); PLATELET COUNT,PLT 140 K/mm3 (150-400); RED BLOOD CELL COUNT 3.79 M/mm3 (4.10-5.30); WHITE BLOOD CELL COUNT,WBC 4.35 K/mm3 (3.9-11.3)
[2024-07-20 08:11] LABS: A/G RATIO 0.5 (1-2); ALBUMIN 2.2 g/dl (3.4-5.0); ANION GAP 13.3 (5-15); BILIRUBIN TOTAL 0.4 mg/dL (0.2-1.0); BUN/CREATININE RATIO 21.4 (14-18); C-REACTIVE PROTEIN 18.61 mg/dL (<0.30); CALCIUM 9.2 mg/dL (8.5-10.1); CREATININE 1.4 mg/dL (0.55-1.02); EST CRCL DRUG DOSING (CG) 34.49 mL/min; POTASSIUM,K 3.3 mEq/L (3.5-5.1); PROTEIN TOTAL,TP 6.5 g/dl (6.4-8.2)
[2024-07-20] MEDS: Aspirin 81 MG Tab.EC PO SCH (08:46)
[2024-07-20] MEDS: Citalopram 10 MG Tab PO SCH (08:46)
[2024-07-20] MEDS: Metoprolol Succinate 25 MG Tab.ER PO SCH (08:46)
[2024-07-20] MEDS: Potassium Chloride 20 MEQ Tab.ER PO ONE (09:49)
[2024-07-20] MEDS: Sennosides/Docusate Sodium 50-8.6 MG Tab PO SCH (12:26)
[2024-07-20] MEDS: Ondansetron 4 MG/2 ML SDV IVPUSH PRN (12:27)
[2024-07-20 13:02] LABS: BASOPHILS PERCENT AUTO 0.4 % (0.0-1.0); EOSINOPHILS ABSOLUTE AUTO 0.1 K/mm3 (0.0-0.4); EOSINOPHILS PERCENT AUTO 2.3 % (0.0-6.0); HEMATOCRIT 38.1 % (37.0-47.0); HEMOGLOBIN 11.8 gm/dl (12.0-16.0); IMMATURE GRAN ABSOLUTE AUTO 0.02 K/mm3 (0.00-0.05); IMMATURE GRAN PERCENT AUTO 0.4 % (0.0-0.4); LYMPHOCYTES ABSOLUTE AUTO 0.7 K/mm3 (1.0-4.8); LYMPHOCYTES PERCENT AUTO 13.5 % (24.0-44.0); MEAN CORPUSCULAR HEMOGLOBIN 28.4 pg (28.0-32.0); MEAN CORPUSCULAR VOLUME 91.6 fl (83.0-99.0); MEAN PLATELET VOLUME 10.2 fl (9.4-12.3); MONOCYTES ABSOLUTE AUTO 0.6 K/mm3 (0.0-0.8); MONOCYTES PERCENT AUTO 12.2 % (0.0-8.0); NEUTROPHILS ABSOLUTE AUTO 3.7 K/mm3 (1.8-7.7); NEUTROPHILS PERCENT AUTO 71.2 % (41.0-71.0); PLATELET COUNT,PLT 172 K/mm3 (150-400); RED BLOOD CELL COUNT 4.16 M/mm3 (4.10-5.30); WHITE BLOOD CELL COUNT,WBC 5.17 K/mm3 (3.9-11.3)
[2024-07-20 13:22] LABS: A/G RATIO 0.5 (1-2); ALBUMIN 2.6 g/dl (3.4-5.0); ANION GAP 13.4 (5-15); BILIRUBIN TOTAL 0.4 mg/dL (0.2-1.0); CALCIUM 9.8 mg/dL (8.5-10.1); CREATININE 1.5 mg/dL (0.55-1.02); EST CRCL DRUG DOSING (CG) 32.19 mL/min; POTASSIUM,K 3.4 mEq/L (3.5-5.1); PROTEIN TOTAL,TP 7.8 g/dl (6.4-8.2)
[2024-07-20] MEDS: Magnesium Sulf/Wat 2 GM/50 mL 2 GM in Premix Bag 1 BAG IV ONE (14:53)
[2024-07-20] MEDS: amLODIPine 5 MG Tab PO SCH (14:53)
[2024-07-20] MEDS: Rivaroxaban 10 MG Tab PO SCH (17:34)
[2024-07-20] MEDS: Melatonin 3 MG Tab PO SCH (21:10)
[2024-07-21] MEDS: Levothyroxine 75 MCG Tab PO SCH (05:32)
[2024-07-21 06:58] LABS: BASOPHILS PERCENT AUTO 0.2 % (0.0-1.0); EOSINOPHILS ABSOLUTE AUTO 0.1 K/mm3 (0.0-0.4); EOSINOPHILS PERCENT AUTO 2.4 % (0.0-6.0); HEMATOCRIT 33.1 % (37.0-47.0); HEMOGLOBIN 10.6 gm/dl (12.0-16.0); IMMATURE GRAN ABSOLUTE AUTO 0.02 K/mm3 (0.00-0.05); IMMATURE GRAN PERCENT AUTO 0.4 % (0.0-0.4); LYMPHOCYTES ABSOLUTE AUTO 0.6 K/mm3 (1.0-4.8); LYMPHOCYTES PERCENT AUTO 12.4 % (24.0-44.0); MEAN CORPUSCULAR HEMOGLOBIN 28.7 pg (28.0-32.0); MEAN CORPUSCULAR VOLUME 89.7 fl (83.0-99.0); MEAN PLATELET VOLUME 9.7 fl (9.4-12.3); MONOCYTES ABSOLUTE AUTO 0.6 K/mm3 (0.0-0.8); MONOCYTES PERCENT AUTO 12.4 % (0.0-8.0); NEUTROPHILS ABSOLUTE AUTO 3.6 K/mm3 (1.8-7.7); NEUTROPHILS PERCENT AUTO 72.2 % (41.0-71.0); PLATELET COUNT,PLT 160 K/mm3 (150-400); RED BLOOD CELL COUNT 3.69 M/mm3 (4.10-5.30); WHITE BLOOD CELL COUNT,WBC 4.92 K/mm3 (3.9-11.3)
[2024-07-21 07:31] LABS: A/G RATIO 0.5 (1-2); ALBUMIN 2.2 g/dl (3.4-5.0); BILIRUBIN TOTAL 0.3 mg/dL (0.2-1.0); C-REACTIVE PROTEIN 11.52 mg/dL (<0.30); CREATININE 1.3 mg/dL (0.55-1.02); EST CRCL DRUG DOSING (CG) 37.14 mL/min; PROTEIN TOTAL,TP 6.6 g/dl (6.4-8.2)
[2024-07-21] MEDS: Magnesium Sulf/Wat 2 GM/50 mL 2 GM in Premix Bag 1 BAG IV ONE (08:06)
[2024-07-21] MEDS ORDERED: Sennosides/Docusate Sodium 50-8.6 MG Tab PO PRN (08:07)
[2024-07-21] MEDS: Potassium Chloride 20 MEQ Tab.ER PO ONE (08:09)
[2024-07-21] MEDS: Potassium Chloride 10 MEQ in Premix Bag 1 BAG IV SCH (09:36)
[2024-07-21] MEDS: Atropine 0.1 MG/ML 10 ML Syringe ONE (10:36)
== END 2024-07-21 10:08 | DRG 871 ==
LOC: JD.ED 21:18 → JD.ICU 07-19 02:45
PROVIDERS: ADMIT Family Medicine; ATTEND Family Medicine
DX: A41.9 Sepsis, unspecified organism (principal); I21.A1 Myocardial infarction type 2; R41.82 Altered mental status, unspecified; R79.89 Other specified abnormal findings of blood chemistry; Z68.42 Body mass index [BMI] 45.0-49.9, adult; I12.9 Hypertensive chronic kidney disease with stage 1 through stage 4 chronic kidney disease, or unspecified chronic kidney disease; N18.9 Chronic kidney disease, unspecified; N30.00 Acute cystitis without hematuria; R91.8 Other nonspecific abnormal finding of lung field; G93.40 Encephalopathy, unspecified; E11.22 Type 2 diabetes mellitus with diabetic chronic kidney disease; N17.9 Acute kidney failure, unspecified; E66.9 Obesity, unspecified; N18.4 Chronic kidney disease, stage 4 (severe); Z79.01 Long term (current) use of anticoagulants; Z79.891 Long term (current) use of opiate analgesic; Z79.890 Hormone replacement therapy; I44.2 Atrioventricular block, complete; R65.20 Severe sepsis without septic shock; H54.7 Unspecified visual loss; E78.00 Pure hypercholesterolemia, unspecified; J45.909 Unspecified asthma, uncomplicated; E86.1 Hypovolemia; M19.90 Unspecified osteoarthritis, unspecified site; E11.40 Type 2 diabetes mellitus with diabetic neuropathy, unspecified; R09.02 Hypoxemia; I13.10 Hypertensive heart and chronic kidney disease without heart failure, with stage 1 through stage 4 chronic kidney disease, or unspecified chronic kidney disease; F32.A Depression, unspecified; R59.0 Localized enlarged lymph nodes; E66.01 Morbid (severe) obesity due to excess calories; E86.0 Dehydration; I25.10 Atherosclerotic heart disease of native coronary artery without angina pectoris; E11.65 Type 2 diabetes mellitus with hyperglycemia; E03.9 Hypothyroidism, unspecified; Z96.659 Presence of unspecified artificial knee joint; Z79.899 Other long term (current) drug therapy; Z86.711 Personal history of pulmonary embolism; Z98.890 Other specified postprocedural states; Z88.8 Allergy status to other drugs, medicaments and biological substances
CPT/HCPCS: 0241U; 36415; 51702; 70450; 71045; 71250; 74018; 74176; 80053; 81001; 82550; 82947; 83605; 83690; 83735; 84443; 84484; 85025; 85610; 86140; 87040; 87086; 87641; 93005; 93306; 96361; 96365; 96375; 97110; 97161; 97530; 99285; 87088; 87186; 93010; A9270-GY; J0696; J2405; J3475; J3480; J7030